=== PATIENT | female | born 1980 | race Caucasian/White ===

== ENCOUNTER 2020-02-24 11:40 | Emergency (ER) | payer MEDICAID ==
--- NOTE | 2020-02-24 13:32 | ER Document Report ---
ED Medical Screen (RME) - General Chief Complaint: Flank Pain Stated Complaint: LEFT FLANK PAIN,PAINFUL URINATION Time Seen by Provider: 02/24/20 13:25 Mode of Arrival: Ambulatory Information source: Patient Notes: 39-year-old female presented to ED for painful urine was bad pelvic pain vaginal discharge yellow foul-smelling x3 days. She is alert oriented respirations regular nonlabored speaking in full sentences. She states she is and she is monogamous. States last menstrual period started on 02/18/2020. We will send a clean and dirty urine order ultrasound blood work. I have greeted and performed a rapid initial assessment of this patient. A comprehensive ED assessment and evaluation of the patient, analysis of test results and completion of medical decision making process will be conducted by an additional ED providers. - Related Data Allergies/Adverse Reactions: No Known Allergies Allergy (Verified 02/24/20 13:24) Physical Exam - Vital signs Vitals: Temp Pulse Resp BP Pulse Ox 98.9 F 66 16 128/74 H 100 02/24/20 11:54 02/24/20 11:54 02/24/20 11:54 02/24/20 11:54 02/24/20 11:54 Course - Vital Signs Vital signs: Temp Pulse Resp BP Pulse Ox 98.9 F 66 16 128/74 H 100 02/24/20 11:54 02/24/20 11:54 02/24/20 11:54 02/24/20 11:54 02/24/20 11:54
[2020-02-24 14:05] LABS: APPEARANCE,URINE CLEAR; BILIRUBIN,URINE NEGATIVE (NEGATIVE); COLOR,URINE YELLOW; GLUCOSE, URINE NEGATIVE (NEGATIVE); KETONES,URINE NEGATIVE (NEGATIVE); LEUKOCYTE ESTERASE,URINE MODERATE (NEGATIVE); NITRITE,URINE NEGATIVE (NEGATIVE); PROTEIN,URINE NEGATIVE (NEGATIVE); URINE SPECIFIC GRAVITY 1.025; UROBILINOGEN,URINE NEGATIVE mg/dL (<2.0)
--- NOTE | 2020-02-24 14:24 | RADIOLOGY REPORT (SQ) ---
EXAM DESCRIPTION: U/S NON-OB PELVIS TV W/O DOP IMAGES COMPLETED DATE/TIME: 02/24/2020 2:10 pm REASON FOR STUDY: pelvic pain 3 days COMPARISON: None. TECHNIQUE: Dynamic and static grayscale images acquired of the pelvis via transvaginal approach and recorded on PACS. Additional selected color Doppler and spectral images recorded. LIMITATIONS: None. FINDINGS: UTERUS: Contour normal. No mass. ENDOMETRIAL STRIPE: No focal or generalized thickening. No masses. CERVIX: No nabothian cysts. RIGHT OVARY AND DOPPLER: Normal size. No worrisome masses. Normal arterial vascular flow without evid ence for torsion. LEFT OVARY AND DOPPLER: Normal size. No worrisome masses. Normal arterial vascular flow without evide nce for torsion. FREE FLUID: None noted. OTHER: No other significant finding. MEASUREMENTS: UTERUS: 9.7 x 5.4 x 4.4 cm ENDOMETRIAL STRIPE: 4 mm RIGHT OVARY: 2.9 x 2.0 x 1.5 cm LEFT OVARY: 2.9 x 1.8 x 2.6 cm IMPRESSION: Age-appropriate exam. TECHNICAL DOCUMENTATION: JOB ID: [id number] [place]-72 2010 [employer]- All Rights Reserved Rev-12/16 Reading location - IP/workstation name: [email or web address]
[2020-02-24 14:50] LABS: ABSOLUTE EOSINOPHILS # (AUTO) 0.2 10^3/uL (0.0-0.6); ABSOLUTE LYMPHOCYTES (AUTO) 1.4 10^3/uL (0.5-4.7); ABSOLUTE MONOCYTES (AUTO) 0.3 10^3/uL (0.1-1.4); ABSOLUTE NEUT (AUTO) 4.6 10^3/uL (1.7-8.2); BASOPHILS % (AUTO) 0.4 % (0-2); EOSINOPHILS % (AUTO) 3.7 % (0-6); HEMATOCRIT 40.5 % (36.0-47.0); LYMPHOCYTES % (AUTO) 21.4 % (13-45); MEAN CORPUSCULAR HGB CONC 34.6 g/dL (32.0-36.0); MEAN CORPUSCULAR VOLUME 90 fl (80-97); MONOCYTES % (AUTO) 4.4 % (3-13); PLATELET COUNT 245 10^3/uL (150-450); RED BLOOD COUNT 4.52 10^6/uL (3.72-5.28); RED CELL DISTRIBUTION WIDTH 14.5 % (11.5-14.0); SEGMENTED NEUTROPHILS % (AUTO) 70.1 % (42-78); TOTAL CELLS COUNTED % (AUTO) 100 %; WHITE BLOOD COUNT 6.5 10^3/uL (4.0-10.5)
[2020-02-24 15:02] LABS: ALBUMIN 4.1 g/dL (3.5-5.0); ALKALINE PHOSPHATASE 62 U/L (38-126); ASPARTATE AMINO TRANSFERASE 19 U/L (14-36); BILIRUBIN,TOTAL 0.7 mg/dL (0.2-1.3); BLOOD UREA NITROGEN 15 mg/dL (7-20); CALCIUM 9.5 mg/dL (8.4-10.2); CHLORIDE 108 mmol/L (98-107); GLUCOSE 87 mg/dL (75-110); POTASSIUM 4.8 mmol/L (3.6-5.0); TOTAL PROTEIN 7.4 g/dL (6.3-8.2)
[2020-02-24 15:07] LABS: CARBON DIOXIDE 25 mmol/L (22-30)
[2020-02-24 15:08] LABS: ANION GAP 5 (5-19)
[2020-02-24 15:30] LABS: CHLAM PCR DETECTED (NOT DETECT)
[2020-02-24] MEDS ORDERED: AZITHROMYCIN 250 MG TABLET PO ONE (15:35)
[2020-02-24] MEDS ORDERED: CEFTRIAXONE INJ 250 MG VIAL IM ONE (15:35)
--- NOTE | 2020-02-24 15:35 | ER Document Report ---
ED General - General Chief Complaint: Pain With Urination Stated Complaint: LEFT FLANK PAIN,PAINFUL URINATION Time Seen by Provider: 02/24/20 13:25 Mode of Arrival: Ambulatory Notes: Patient is a 39-year-old female with no significant past medical history presents to the emergency department with a chief complaint of pelvic pain that began 3 days ago. She states is associated with a pain in the right flank as well as with a burning with urination. She states she has had abnormal vaginal discharge that is yellow and malodorous. She states that she is in a monogamous relationship and has never had any STDs. She does add to her history that she has had kidney stones on the right in the past with her many years ago and that this feels differently. She states that she just finished her last normal menstrual cycle. Denies any fever, nausea vomiting, diarrhea, chills or night sweats. No diarrhea. - Related Data Allergies/Adverse Reactions: No Known Allergies Allergy (Verified 02/24/20 13:24) Past Medical History - General Information source: Patient - Social History Smoking Status: Former Smoker Family History: Reviewed & Not Pertinent Patient has homicidal ideation: No Review of Systems - Review of Systems Constitutional: denies: Fever EENT: denies: Throat pain Cardiovascular: denies: Chest pain Respiratory: denies: Short of breath Gastrointestinal: denies: Diarrhea, Nausea, Vomiting Genitourinary: Flank pain Female Genitourinary: Vaginal discharge Musculoskeletal: Back pain - CVA area Skin: denies: Change in color Hematologic/Lymphatic: denies: Easy bleeding Neurological/Psychological: denies: Headaches Physical Exam - Vital signs Vitals: Temp Pulse Resp BP Pulse Ox 98.9 F 66 16 128/74 H 100 02/24/20 11:54 02/24/20 11:54 02/24/20 11:54 02/24/20 11:54 02/24/20 11:54 - General General appearance: Appears well, Alert In distress: None - Respiratory Respiratory status: No respiratory distress Chest status: Nontender Breath sounds: Normal Chest palpation: Normal - Cardiovascular Rhythm: Regular Heart sounds: Normal auscultation - Abdominal Inspection: Normal Distension: No distension Bowel sounds: Normal Tenderness: Tender - Suprapubic, left lower and right lower quadrant Organomegaly: No organomegaly - Back Back: CVA tenderness - Right-sided - Neurological Neuro grossly intact: Yes Cognition: Normal Orientation: AAOx4 - Psychological Associated symptoms: Normal affect, Normal mood - Skin Skin Temperature: Warm Skin Moisture: Dry Skin Color: Normal Course - Re-evaluation Re-evalutation: 02/24/20 16:09 Patient's laboratory findings mostly unremarkable. She has some blood and leuks in the UA. Testing for gonorrhea and chlamydia were positive. Patient be treated with Rocephin and Zithromax. We discussed abstinence until retesting was achieved with negative results and until she had a complete battery of STD testing by her primary healthcare provider and cleared for safe return to safe sexual practices. She will discuss with her partner the need to be tested and treated. CT scan showing some nephrolithiasis as well as cholelithiasis without any acute process involving those areas. Patient was aware of her L5 anterior listhesis. Discussed with her the importance of outpatient follow-up and advised she return here any ER immediately with any new, persistent or worsening symptoms. She verbalized understood and agreed. 02/24/20 16:09 - Vital Signs Vital signs: Temp Pulse Resp BP Pulse Ox 98.9 F 66 16 128/74 H 100 02/24/20 11:54 02/24/20 11:54 02/24/20 11:54 02/24/20 11:54 02/24/20 11:54 - Laboratory Result Diagrams: 02/24/20 14:30 02/24/20 14:30 Laboratory results interpreted by me: 02/24/20 02/24/20 02/24/20 13:30 13:30 14:30 RDW 14.5 H Chloride Urine Blood MODERATE H Ur Leukocyte Esterase MODERATE H Chlamydia DNA (PCR) DETECTED H N.gonorrhoeae DNA (PCR) DETECTED H 02/24/20 14:30 RDW Chloride 108 H Urine Blood Ur Leukocyte Esterase Chlamydia DNA (PCR) N.gonorrhoeae DNA (PCR) Discharge - Discharge Clinical Impression: Gonorrhea, Chlamydia Condition: Stable Disposition: HOME, SELF-CARE Instructions: Gonorrhea ([facility]), Chlamydia ([facility]) Additional Instructions: Follow-up with your regular doctor in 2 to 3 days for reevaluation and continued outpatient testing and care. Return here or any ER immediately with any new, persistent or worsening symptoms.
--- NOTE | 2020-02-24 15:55 | RADIOLOGY REPORT (SQ) ---
EXAM DESCRIPTION: CT ABD/PELVIS NO ORAL OR IV IMAGES COMPLETED DATE/TIME: 02/24/2020 3:41 pm REASON FOR STUDY: r flank pain/ dysuria COMPARISON: None. TECHNIQUE: CT scan of the abdomen and pelvis performed without intravenous or oral contrast. Images reviewed with lung, soft tissue, and bone windows. Reconstructed coronal and sagittal MPR images revi ewed. All images stored on PACS. All CT scanners at this facility use dose modulation, iterative reconstruction, and/or weight based d osing when appropriate to reduce radiation dose to as low as reasonably achievable (ALARA). [facility]: Dose Right [facility]: CareDose [facility]: Dose Right [facility]: Teradose 4D [facility]: [email or web address] RADIATION DOSE: CT Rad equipment meets quality standard of care and radiation dose reduction techniq ues were employed. CTDIvol: 5.6 mGy. DLP: 273 mGy-cm.mGy. LIMITATIONS: None. FINDINGS: LOWER CHEST: No significant findings. No nodules or infiltrates. NON-CONTRASTED LIVER, SPLEEN, ADRENALS: Evaluation limited by lack of IV contrast. Multiple hepatic cysts largest measuring 4.1 cm. . PANCREAS: No masses. No peripancreatic inflammatory changes. GALLBLADDER: Tiny calcified stones. No inflammatory changes to suggest cholecystitis. RIGHT KIDNEY AND URETER: No cysts identified. No solid masses. Multiple parenchymal calcified stones , largest measures 6.5 mm. No hydronephrosis or hydroureter. LEFT KIDNEY AND URETER: No cysts identified. No solid masses. No calcified stones. No hydronephrosis or hydroureter. AORTA AND RETROPERITONEUM: No aneurysm. No retroperitoneal masses or adenopathy. BOWEL AND PERITONEAL CAVITY: No obvious masses or inflammatory changes. No free fluid. APPENDIX: Not visualized. PELVIS, BLADDER, AND ABDOMINAL WALL: No free fluid. Unremarkable bladder. BONES: No acute findings. Bilateral L5 pars interarticularis defects with 3 mm anterolisthesis of L5 on S1. OTHER: No other significant finding. IMPRESSION: Multiple right renal parenchymal calcified stones, largest measures 6.5 mm. No hydroneph rosis or hydroureter. Cholelithiasis. Bilateral L5 pars interarticularis defects with 3 mm anterolisthesis of L5 on S1. TECHNICAL DOCUMENTATION: JOB ID: [id number] [place]-72 Quality ID # [id number]: Final reports with documentation of one or more dose reduction techniques (e.g., Au tomated exposure control, adjustment of the mA and/or kV according to patient size, use of iterative reconstruction technique) 2010 [employer]- All Rights Reserved Reading location - IP/workstation name: [email or web address]
[2020-02-24] MEDS ORDERED: LIDOCAINE 1% INJ (10 MG/ML) 10 ML MDV INJ ONE (16:08)
[2020-02-24 17:10] VITALS: BP 125/70
== END 2020-02-24 16:47 | disposition home or self-care (01) ==
LOC: ER 11:40
DX: A54.9 Gonococcal infection, unspecified (principal); A74.9 Chlamydial infection, unspecified; R30.9 Painful micturition, unspecified; R10.9 Unspecified abdominal pain; R10.2 Pelvic and perineal pain; N89.8 Other specified noninflammatory disorders of vagina; M54.9 Dorsalgia, unspecified; Z87.442 Personal history of urinary calculi; Z87.891 Personal history of nicotine dependence
CPT/HCPCS: 99284; 96372; 36415; 87086; 85025; 81025; 80053; 81001; 87491; 87591; 76830; 74176; J0696